=== PATIENT | male | born 1950 | race Caucasian/White ===

== ENCOUNTER 2019-01-27 05:34 | Inpatient (IN) ==
[2019-01-27] MEDS ORDERED: LIDOCAINE W/ SODIUM BICARB 0.5 ML SYR ONE (05:53)
[2019-01-27] MEDS ORDERED: Sodium Chloride 0.9% 250 ML ONE (05:53)
[2019-01-27] MEDS ORDERED: Vancomycin Inj 1.25gm vial IV ONE (05:53)
[2019-01-27] MEDS ORDERED: Lactated Ringers 1,000 ML PRIMARY IV ONE ×2 (05:53→06:00)
[2019-01-27] MEDS ORDERED: Clindamycin 900mg (Premix) 900 MG/50 ML BAG IV ONE ×2 (05:53→06:00)
[2019-01-27] MEDS ORDERED: Vancomycin-PHA to Dose IV PRN ×2 (06:00→14:45)
[2019-01-27] MEDS ORDERED: LIDOCAINE W/ SODIUM BICARB 0.5 ML SYR SUBD ONE (06:00)
[2019-01-27] MEDS ORDERED: Nasal Sanitizer POPSWAB ampule 3 AMP (Nozin) PREOP DOSE ENOS SCH (06:00)
[2019-01-27 06:25] LABS: BILIRUBIN,URINE NEGATIVE (NEG); CLARITY,URINE CLEAR (CLEAR); COLOR,URINE YELLOW (Y); GLUCOSE, URINE (UA) NEGATIVE (NEG); OCCULT BLOOD,URINE NEGATIVE (NEG); PH,URINE 5.5 (5.0-8.5); PROTEIN,URINE NEGATIVE (NEG); UROBILINOGEN,URINE 0.2 EU/dL (0.2)
[2019-01-27 06:32] LABS: URINE SAMPLE TYPE CLEAN CATCH URINE
[2019-01-27] MEDS ORDERED: BACITRACIN 50,000 UNIT VIAL IRRIG ONE ×3 (06:58→11:49)
[2019-01-27] MEDS ORDERED: BUPIVACAINE 0.25% W/ EPI - 10 ML VIAL ONE (06:58)
[2019-01-27] MEDS ORDERED: Sodium Chloride 0.9% vial 10 ML ONE ×3 (06:58→11:49)
[2019-01-27] MEDS ORDERED: LIDOCAINE HCL 2 % 10 ML JELLY URO-JECT TOPICAL ONE (07:07)
[2019-01-27] MEDS ORDERED: SUCCINYLCHOLINE CHLORIDE 20 MG/1 ML - 10 ML ONE (07:34)
[2019-01-27] MEDS ORDERED: HYDROmorphone 2 MG/1 ML ONE ×3 (07:44→14:06)
[2019-01-27] MEDS ORDERED: KETAMINE 100 MG/1 ML - 5 ML ONE (07:58)
[2019-01-27] MEDS ORDERED: PROPOFOL 10 MG/1 ML (200 MG/20 ML) VIAL IV ONE (08:05)
[2019-01-27] MEDS ORDERED: LIDOCAINE HCL 2 % 10 ML JELLY URO-JECT TOPICAL PRN (08:10)
[2019-01-27] MEDS ORDERED: TRANEXAMIC ACID 1,000 MG / 10 ML VIAL ONE (08:19)
[2019-01-27] MEDS ORDERED: Colchicine Tab 0.6 MG TABLET PO SCH (09:00)
[2019-01-27] MEDS ORDERED: ONDANSETRON 4 MG/2 ML VIAL IVP PRN ×2 (13:48→14:45)
[2019-01-27] MEDS ORDERED: KETOROLAC 15 MG/1 ML VIAL IVP PRN (13:48)
[2019-01-27] MEDS ORDERED: fentaNYL Inj 100 MCG/2 ML VIAL IVP PRN (13:48)
[2019-01-27] MEDS ORDERED: LIDOCAINE W/ SODIUM BICARB 0.5 ML SYR SUBD PRN (13:48)
[2019-01-27] MEDS ORDERED: HYDROmorphone 2 MG/1 ML IVP PRN (14:09)
[2019-01-27] MEDS ORDERED: BISACODYL 5 MG TABLET PO PRN (14:45)
[2019-01-27] MEDS ORDERED: MAGNESIUM CITRATE 296 ML SOLUTION PO PRN (14:45)
[2019-01-27] MEDS ORDERED: PROMETHAZINE 25 MG/1 ML VIAL IM PRN (14:45)
[2019-01-27] MEDS ORDERED: Fleet Enema 133ml RECTAL PRN (14:45)
[2019-01-27] MEDS ORDERED: DIAZEPAM 10 MG/2 ML (5 MG/1 ML) CARPUJECT IVP PRN (14:45)
[2019-01-27] MEDS ORDERED: Prochlorperazine Edisylate Inj 10mg/2ml vial IVP PRN (14:45)
[2019-01-27] MEDS ORDERED: MAGNESIUM 400 MG/5 ML - 30 ML (MILK OF MAGNESIA) PO PRN (14:45)
[2019-01-27] MEDS ORDERED: DIAZEPAM 5 MG TABLET PO PRN (14:45)
[2019-01-27] MEDS ORDERED: DOCUSATE 100 MG CAPSULE PO PRN (14:45)
[2019-01-27] MEDS ORDERED: MORPHINE SULFATE 2 MG/1 ML IVP PRN (14:45)
[2019-01-27] MEDS: Clindamycin 900mg (Premix) 900 MG/50 ML BAG IV SCH ×2 (17:11→23:48)
[2019-01-27] MEDS: oxyCODONE IR Tab 5 MG TAB PO PRN (20:51)
[2019-01-27 23:50] VITALS: RESP 18
[2019-01-28] MEDS: oxyCODONE IR Tab 5 MG TAB PO PRN ×3 (03:42→11:02)
[2019-01-28 05:14] LABS: Hematocrit [HCT] 41.9 % (42.0-52.0); Hemoglobin [HGB] 14.2 g/dL (14.0-18.0); MEAN CORPUSCULAR HGB CONC 33.9 g/dL (33-37); MEAN CORPUSCULAR VOLUME 94.2 FL (80-90); RED BLOOD COUNT 4.45 10^6/uL (4.70-6.10)
[2019-01-28 05:15] LABS: BASOPHILS # (AUTO) 0.02 10*3/UL; BASOPHILS % (AUTO) 0.2 % (0-1); EOSINOPHILS # (AUTO) 0.07 10*3/UL; EOSINOPHILS % (AUTO) 0.7 % (0-8); LYMPHOCYTES # (AUTO) 0.85 10*3/uL; MEAN PLATELET VOLUME 9.7 FL (7.4-12.2); MONOCYTES # (AUTO) 0.81 10*3/UL (0.3-0.8); MONOCYTES % (AUTO) 8.3 % (5-15); NEUTROPHILS # (AUTO) 7.95 10*3/UL; NEUTROPHILS % (AUTO) 81.3 % (50-80); PLATELET MORPHOLOGY COMMENT NORMAL MORPHOLOGY (NORM); RBC MORPHOLOGY COMMENT NORMAL MORPHOLOGY (NORM); WBC MORPHOLOGY COMMENT NORMAL MORPHOLOGY (NORM)
[2019-01-28 05:26] LABS: BLOOD UREA NITROGEN 15 mg/dL (7-22); BUN/CREATININE RATIO 13.63 (6-20)
[2019-01-28] MEDS ORDERED: Vancomycin Inj 1.25gm vial IV ONE (07:25)
[2019-01-28] MEDS ORDERED: Sodium Chloride 0.9% 250 ML ONE (07:29)
[2019-01-28 07:38] VITALS: BP 118/87; TEMP 98; O2SAT 96
[2019-01-28] MEDS ORDERED: ALLOPURINOL 300 MG TABLET PO SCH (09:00)
[2019-01-28] MEDS ORDERED: CYCLOBENZAPRINE 10 MG TABLET PO SCH ×2 (09:00)
[2019-01-28] MEDS ORDERED: Multivitamin Tab 1 TAB PO SCH (09:00)
[2019-01-28] MEDS: Clindamycin 900mg (Premix) 900 MG/50 ML BAG IV SCH (09:15)
== END 2019-01-28 11:21 | disposition home or self-care (01) | DRG 473 ==
LOC: OPS 05:34 → MED/SURG 14:13
PROVIDERS: ADMIT Neurological Surgery; ATTEND Neurological Surgery